=== PATIENT | male | born 1955 | race Caucasian/White ===

== ENCOUNTER 2019-12-10 10:47 | Emergency (ER) | payer BC ==
[2019-12-10] MEDS ORDERED: Acetaminophen 325 MG Tab PO ONE (11:10)
[2019-12-10] MEDS ORDERED: Diphtheria,Pertussis(Acell),Tetanus Vaccine 0.5 ML Syringe IM ONE (11:10)
[2019-12-10] MEDS ORDERED: Lidocaine 1% 50 ML MDV INJECT ONE (11:13)
[2019-12-10] MEDS ORDERED: Cephalexin 500 MG Cap PO ONE (11:18)
--- NOTE | 2019-12-10 11:53 | EDM.PDOC ---
ED HPI GENERAL MEDICAL PROBLEM - General Chief Complaint: Upper Extremity Injury/Pain Stated Complaint: R HAND FINGER INJURY Time Seen by Provider: 12/10/19 11:02 Source of Information: Reports: Patient, RN Notes Reviewed - History of Present Illness INITIAL COMMENTS - FREE TEXT/NARRATIVE: 64-year-old male comes in with injured right index finger. He was cutting down a tree and a large branch or part of the tree accidentally and unexpectedly fell onto his right hand with subsequent crush injury of the right index finger. He does have open laceration of the dorsal distal finger. He has moderate pain of the entire finger. States he still can move the finger and does have some feeling of the distal finger. Tetanus immunization about 8 to 10 years ago. No other pain or injury from this incident. He is right-handed. Right Hand Pain Score (Numeric/FACES): 4 - Related Data Home Meds: Home Meds Aspirin [Ecotrin EC] 81 mg PO DAILY 12/10/19 [History] Cephalexin [Keflex] 500 mg PO Q6HR #30 capsule 12/10/19 [Rx] Losartan Potassium 100 mg PO DAILY 12/10/19 [History] Metoprolol Tartrate 25 mg PO DAILY 12/10/19 [History] Nitroglycerin [Nitrostat] 0.4 mg PO ASDIRECTED 12/10/19 [History] Pantoprazole Sodium [Protonix] 40 mg PO DAILY 12/10/19 [History] Rivaroxaban [Xarelto] 20 mg PO DAILY 12/10/19 [History] Ubidecarenone [Co Q-10] 100 mg PO DAILY 12/10/19 [History] atorvaSTATin Calcium [Atorvastatin Calcium] 80 mg PO DAILY 12/10/19 [History] Past Medical History Cardiovascular History: Reports: CAD, High Cholesterol, Hypertension - Past Surgical History Cardiovascular Surgical History: Reports: Carotid Stents, Coronary Artery Bypass GI Surgical History: Reports: Cholecystectomy, Colonoscopy Musculoskeletal Surgical History: Reports: Arthroscopic Knee Social & Family History - Tobacco Use Smoking Status *Q: Current Every Day Smoker Years of Tobacco use: 40 Packs/Tins Daily: 0.5 - Caffeine Use Caffeine Use: Reports: Coffee - Recreational Drug Use Recreational Drug Use: No Review of Systems - Review of Systems Review Of Systems: See Below Constitutional: Reports: No Symptoms Mouth/Throat: Reports: No Symptoms Respiratory: Denies: Shortness of Breath Cardiovascular: Denies: Chest Pain GI/Abdominal: Denies: Vomiting Musculoskeletal: Reports: Other (pain, swelling and lac injury R index finger) Skin: Reports: Other (lac injury R index finger) Neurological: Denies: Numbness, Tingling, Weakness ED EXAM, GENERAL - Physical Exam Exam: See Below General Appearance: Alert, No Apparent Distress Head: Atraumatic Neck: Supple Respiratory/Chest: No Respiratory Distress Extremities: Other (He does have swelling, diffuse tenderness of entire finger with 1.5 cm shallow lac distal dorsal finger proximal to nailbed. There is mild ulnar angulation deformity distal finger) Neurological: Alert, Oriented, Other (Patient is able to move the finger although not complete motion PIP or DIP due to pain, he does have sensation to touch distal finger) Skin Exam: Warm, Dry Course - Vital Signs Last Recorded V/S: Last Vital Signs Temp 97.1 F 12/10/19 11:02 Pulse 73 12/10/19 11:02 Resp 12 12/10/19 11:02 BP 148/90 H 12/10/19 11:02 Pulse Ox 95 12/10/19 11:02 - Orders/Labs/Meds Orders: Active Orders 24 hr Category Date Time Status Vaccines to be Administered [RC] PER UNIT ROUTINE Care 12/10/19 11:12 Active Fingers Second Digit Rt F6 [CR] Stat Exams 12/10/19 11:11 Taken Meds: Medications Discontinued Medications Generic Name Dose Route Start Last Admin Trade Name Freq PRN Reason Stop Dose Admin Acetaminophen 975 mg 12/10/19 11:10 Tylenol PO 12/10/19 11:11 NOW ONE Cephalexin 500 mg 12/10/19 11:18 Keflex PO 12/10/19 11:19 ONETIME ONE Diphtheria/Tetanus/Acell Pertussis 0.5 ml 12/10/19 11:10 Adacel IM 12/10/19 11:11 .ONCE ONE Lidocaine HCl 50 ml 12/10/19 11:13 Xylocaine 1% INJECT 12/10/19 11:14 ONETIME ONE Departure - Departure Time of Disposition: 11:46 Disposition: Home, Self-Care 01 Condition: Fair Clinical Impression: Fracture, finger, multiple sites - Discharge Information Prescriptions: Cephalexin [Keflex] 500 mg PO Q6HR #30 capsule Referrals: Lily Eisenberg NP [Primary Care Provider] - Additional Instructions: Tube gauze dressing with splint for protection and comfort. Keep that as dry and clean as you can. Avoid further injury to hand or finger. Elevate as much as possible to help get the swelling down. Cephalexin antibiotic 500 mg 4 times daily for 1 week or until gone. Prescription has been sent electronically to [facility] the [facility]. Try see Dr Majano at the [facility] early next week, call [phone] Sterling, [facility] [phone] Majano or one of the [facility]. Tylenol for mild to moderate pain or hydrocodone previously prescribed if needed for more severe pain. Do not drive or work when taking hydrocodone. Return to ED as needed if symptoms worsening in any way. Sepsis Event Note - Evaluation Sepsis Screening Result: No Definite Risk - Focused Exam Vital Signs: Vital Signs Temp Pulse Resp BP Pulse Ox 12/10/19 11:02 97.1 F 73 12 148/90 H 95 Date Exam was Performed: 12/10/19 Time Exam was Performed: 11:46 - My Orders Last 24 Hours: My Active Orders 12/10/19 11:11 Fingers Second Digit Rt F6 [CR] Stat 12/10/19 11:12 Vaccines to be Administered [RC] PER UNIT ROUTINE - Assessment/Plan Last 24 Hours: My Active Orders 12/10/19 11:11 Fingers Second Digit Rt F6 [CR] Stat 12/10/19 11:12 Vaccines to be Administered [RC] PER UNIT ROUTINE
--- NOTE | 2019-12-10 11:57 | CR ---
Right 2nd finger: 3 views centered the right 2nd finger were obtained. Comparison: No prior hand or finger study. Fractures are identified within the proximal, middle and distal phalanx. Fractures are comminuted. Middle phalanx fracture shows mild angulation. Soft tissue swelling is seen. Impression: 1. Extensive fracturing of the right 2nd finger. 2. Soft tissue swelling. Diagnostic code #3 This report was dictated in MDT
== END 2019-12-10 12:15 | disposition home or self-care (01) ==
LOC: JD.ED 10:47
DX: S62.630A Displaced fracture of distal phalanx of right index finger, initial encounter for closed fracture (principal); S62.610A Displaced fracture of proximal phalanx of right index finger, initial encounter for closed fracture; S62.620A Displaced fracture of middle phalanx of right index finger, initial encounter for closed fracture; Z23 Encounter for immunization; I10 Essential (primary) hypertension; I25.10 Atherosclerotic heart disease of native coronary artery without angina pectoris; E78.00 Pure hypercholesterolemia, unspecified; F17.210 Nicotine dependence, cigarettes, uncomplicated; Z79.82 Long term (current) use of aspirin; Z79.01 Long term (current) use of anticoagulants; Z79.899 Other long term (current) drug therapy; W20.8XXA Other cause of strike by thrown, projected or falling object, initial encounter
CPT/HCPCS: 73140; 90471; 90715; 99283; A9270

== ENCOUNTER 2021-05-28 17:04 | Emergency (ER) | payer MEDICARE, OTHER ==
--- NOTE | 2021-05-28 18:32 | CR ---
Right hand: 4 views of the right hand were obtained. Comparison: No prior hand studies available. Fracture is seen within the distal tuft of the third finger. Possible fracture within the base of the distal phalanx of the second finger is also suggested. Deformity is noted within the base of the middle phalanx of the second finger presumably due to old injury. No additional fracture or other bony abnormality is seen. Soft tissue swelling is noted. Impression: 1. Fracture within the distal tuft of the third finger. Possible fracture within the base of the distal phalanx of the second finger. 2. Deformity of the middle phalanx of the second finger presumably due to old injury. 3. Soft tissue swelling. Diagnostic code #3
--- NOTE | 2021-05-28 18:42 | EDM.PDOC ---
ED HPI GENERAL MEDICAL PROBLEM - General Chief Complaint: Laceration Stated Complaint: HAND INJURY LAC Time Seen by Provider: 05/28/21 18:31 Source of Information: Reports: Patient, RN Notes Reviewed History Limitations: Reports: No Limitations - History of Present Illness INITIAL COMMENTS - FREE TEXT/NARRATIVE: Patient is a 65-year-old male presenting to the emergency department with complaints of pain, welling, and abrasion to his right hand. He reports that he was hit in the hand by the arm on his trapshooting machine. He is able to move the hand, however it is painful. He is on Xarelto. Right Hand Pain Score (Numeric/FACES): 4 - Related Data Allergies Allergy/AdvReac Type Severity Reaction Status Date / Time unknown cardiac medication Allergy Cannot Uncoded 05/28/21 17:17 Remember Home Meds: Home Meds Aspirin [Ecotrin EC] 81 mg PO DAILY 12/10/19 [History] Losartan Potassium 100 mg PO DAILY 12/10/19 [History] Metoprolol Tartrate 25 mg PO DAILY 12/10/19 [History] Nitroglycerin [Nitrostat] 0.4 mg PO ASDIRECTED 12/10/19 [History] Pantoprazole Sodium [Protonix] 40 mg PO DAILY 12/10/19 [History] Rivaroxaban [Xarelto] 20 mg PO DAILY 12/10/19 [History] Ubidecarenone [Co Q-10] 100 mg PO DAILY 12/10/19 [History] atorvaSTATin Calcium [Atorvastatin Calcium] 80 mg PO DAILY 12/10/19 [History] cephALEXin [Keflex] 500 mg PO Q6HR #30 capsule 12/10/19 [Rx] Past Medical History Cardiovascular History: Reports: CAD, High Cholesterol, Hypertension Hematologic History: Reports: Anticoagulation Therapy - Past Surgical History Cardiovascular Surgical History: Reports: Carotid Stents, Coronary Artery Bypass GI Surgical History: Reports: Cholecystectomy, Colonoscopy Musculoskeletal Surgical History: Reports: Arthroscopic Knee Social & Family History - Tobacco Use Tobacco Use Status *Q: Current Every Day Tobacco User Years of Tobacco use: 40 Packs/Tins Daily: 0.5 - Caffeine Use Caffeine Use: Reports: Coffee - Recreational Drug Use Recreational Drug Use: No ED ROS GENERAL - Review of Systems Review Of Systems: Comprehensive ROS is negative, except as noted in HPI. ED EXAM, SKIN/RASH Exam: See Below Exam Limited By: No Limitations General Appearance: Alert, WD/WN, No Apparent Distress Respiratory/Chest: No Respiratory Distress, Lungs Clear, Normal Breath Sounds, No Accessory Muscle Use, Chest Non-Tender Cardiovascular: Normal Peripheral Pulses, Regular Rate, Rhythm, No Edema, No Gallop, No JVD, No Murmur, No Rub Extremities: Other (Swelling and superficial abrasion to the dorsal lateral aspect of the right hand. Faint underlying ecchymosis.) Course - Vital Signs Last Recorded V/S: Last Vital Signs Temp 97.6 F 05/28/21 17:15 Pulse 70 05/28/21 17:15 Resp 16 05/28/21 17:15 BP 140/92 H 05/28/21 17:15 Pulse Ox 98 05/28/21 17:15 - Re-Assessments/Exams Free Text/Narrative Re-Assessment/Exam: Patient is a 65-year-old male presenting to the emergency department with complaints of pain, swelling, and abrasion to the dorsal lateral aspect of his right hand after being hit in the hand by the arm of his trapshooting machine. X-ray was completed and reviewed by both myself and Dr. Wiggins shows no evidence of fracture. Wound was cleansed with sterile saline and chlorhexidine. Nursing staff will apply bacitracin and Band-Aid. Braulio wrap will be applied as well. Recommend intermittent icing. Discharge instructions as documented. 05/28/211929 Radiologist read hand x-ray as fracture within the distal tuft of the third finger. Possible fracture within the base of the distal phalanx of the second. Finger. I did have the patient return. Examined these areas. He has no tenderness to palpation was not injured in these areas. He reports that these fingers have been significantly injured in the past with crush injury. No splint was applied at this time. Departure - Departure Time of Disposition: 18:38 Disposition: Home, Self-Care 01 Condition: Good Clinical Impression: Contusion of hand, right Qualifiers: Encounter type: initial encounter Qualified Code(s): S60.221A - Contusion of right hand, initial encounter - Discharge Information *PRESCRIPTION DRUG MONITORING PROGRAM REVIEWED*: No *COPY OF PRESCRIPTION DRUG MONITORING REPORT IN PATIENT STACEY: No Instructions: Hand Contusion Referrals: Lily Eisenberg NP [Primary Care Provider] - Forms: ED Department Discharge Additional Instructions: You were seen in the emergency department today for abrasion, pain, and swelling to your right hand after being hit by the arm of a trapshooting machine. X-rays were completed and show no fracture. The wound was cleansed and covered with bacitracin and a Band-Aid. Braulio wrap has been applied to help with the swelling. Recommend wearing this for the next few days. You may ice intermittently as well. Wash the wound twice daily with normal soap and water. Watch for signs of infection including increased redness, swelling, or purulent drainage. If these should occur you should either be evaluated in the clinic or the emergency department. Return to ER as needed. Sepsis Event Note (ED) - Evaluation Sepsis Screening Result: No Definite Risk
== END 2021-05-28 18:53 | disposition home or self-care (01) ==
LOC: JD.ED 17:04
DX: S60.221A Contusion of right hand, initial encounter (principal); I25.10 Atherosclerotic heart disease of native coronary artery without angina pectoris; E78.00 Pure hypercholesterolemia, unspecified; I10 Essential (primary) hypertension; Z72.0 Tobacco use; Z79.82 Long term (current) use of aspirin; Z79.01 Long term (current) use of anticoagulants; Z95.1 Presence of aortocoronary bypass graft; W22.8XXA Striking against or struck by other objects, initial encounter
CPT/HCPCS: 73130-26-RT; 73130-RT; 99282; 99283-25